=== PATIENT | male | born 1980 | race Caucasian/White ===

== ENCOUNTER 2017-04-29 14:48 | Emergency (ER) | payer OTHER ==
[2017-04-29 14:57] VITALS: BP 136/82; PULSE 79; RESP 18; TEMP 97.3
[2017-04-29] MEDS ORDERED: HYDROcodone/APAP 5-325MG 1 EACH TAB PO STA (15:24)
--- NOTE | 2017-04-29 15:42 | XR ---
Right toes HISTORY: Trauma and pain 3 views of the right toes are submitted. Digits are flexed. Lucency is present through the volar aspect of the middle phalanx of the fourth d igit of the right foot suspicious for intra-articular fracture at the proximal interphalangeal joint. No dislocation. IMPRESSION: Findings suggest fracture of the volar aspect at the proximal interphalangeal joint of th e fourth digit of the right foot within the middle phalanx as described.
--- NOTE | 2017-04-29 15:49 | ED ---
Wound/Laceration HPI - General Chief Complaint: Wound/Laceration Stated Complaint: right foot injury from lawnmower Time Seen by Provider: 04/29/17 14:59 Source: patient Mode of arrival: wheelchair Limitations: no limitations - History of Present Illness Initial Comments: 36 her old male patient presents to emergency department today for evaluation of a right foot injury. Patient states he was mowing the lawn about an hour ago with a push mower, he states he was backing up when he tripped over his child's sandbox, falling backwards, he states that the lawnmower came backward over his foot. He states he was wearing a tennis shoe and it tore up his tennis shoe and caused injury to his foot. Patient does have a laceration to his fourth toe, and is complaining of pain to the second through fifth toes. Patient states he is able to move them without difficulty. Denies any numbness or tingling. Denies any injury to the foot or ankle. He denies hitting his head or losing consciousness. Patient denies any headache, neck pain, back pain , chest pain, shortness of breath, dizziness, weakness, abdominal pain, nausea, vomiting, or difficulties with bowel movements or urination. - Related Data Previous Rx's Medication Instructions Recorded Cephalexin [Keflex] 500 mg PO QID #21 cap 04/29/17 Allergies Allergy/AdvReac Type Severity Reaction Status Date / Time No Known Allergies Allergy Verified 04/29/17 14:57 Review of Systems ROS Statement: Those systems with pertinent positive or pertinent negative responses have been documented in the HPI. ROS Other: All systems not noted in ROS Statement are negative. Past Medical History Past Medical History: No Reported History History of Any Multi-Drug Resistant Organisms: None Reported Past Surgical History: Adenoidectomy, Ear Surgery, Hernia Repair, Tonsillectomy Past Psychological History: No Psychological Hx Reported Smoking Status: Never smoker Past Alcohol Use History: Occasional Past Drug Use History: None Reported General Exam Limitations: no limitations General appearance: alert, in no apparent distress Head exam: Present: atraumatic, normocephalic, normal inspection Eye exam: Present: normal appearance, PERRL, EOMI. Absent: scleral icterus, conjunctival injection, periorbital swelling ENT exam: Present: normal exam, normal oropharynx, mucous membranes moist Neck exam: Present: normal inspection, full ROM, other (Nontender, no step-off, no deformity noted to firm midline palpation of the posterior cervical spine. Full range of motion without pain or limitation.). Absent: tenderness, meningismus, lymphadenopathy Respiratory exam: Present: normal lung sounds bilaterally. Absent: respiratory distress, wheezes, rales, rhonchi, stridor Cardiovascular Exam: Present: regular rate, normal rhythm, normal heart sounds. Absent: systolic murmur, diastolic murmur, rubs, gallop, clicks Extremities exam: Present: normal inspection, full ROM, normal capillary refill , other (Right second , third, fourth, and fifth toes are mildly edematous with some evidence of ecchymosis. Right fourth toe to the right lateral aspect shows a laceration, bleeding controlled. Skin otherwise is pink, warm, and dry. Cap refill less than 3 seconds.). Absent: tenderness, pedal edema, joint swelling, calf tenderness Back exam: Present: normal inspection, full ROM, other. Absent: tenderness, CVA tenderness (R), CVA tenderness (L), vertebral tenderness, rash noted Neurological exam: Present: alert, oriented X3, CN II-XII intact Psychiatric exam: Present: normal affect, normal mood Skin exam: Present: warm, dry, intact, normal color. Absent: rash Course Vital Signs 04/29/17 14:53 Temperature 97.3 F L Pulse Rate 79 Respiratory 18 Rate Blood Pressure 136/82 O2 Sat by Pulse 97 Oximetry Procedures - Laceration Laceration #1 Consent Obtained: verbal consent Time Out Performed: Yes Indication: laceration Site: other (fourth toe left foot) Size (cm): 3 Description: linear Depth: simple, single layer Anesthetic Used: lidocaine 1% Anesthesia Technique: local infiltration, nerve block Amount (mls): 6 Pre-repair: irrigated extensively Type of Sutures: nylon Size of Sutures: 5-0 Number of Sutures: 4 Technique: simple, interrupted Patient Tolerated Procedure: well, no complications Medical Decision Making - Medical Decision Making 36-year-old male patient presented for evaluation of right foot injury. X-ray of the right toes were obtained and did show an acute fracture through the proximal interphalangeal joint of the fourth toe on the right foot. Laceration was closed with 4 sutures. Patient was given an injection of Ancef here in the department. Given a prescription for Keflex. Instructed to follow-up with orthopedics for reevaluation in one to 2 days. Given copy of the x-ray to take with him to the appointment. Instructed to return immediately for any new, worsening, or concerning symptoms. Patient verbalizes understanding and agreed with this plan. - Radiology Data Radiology results: report reviewed, image reviewed 3 views of the right toes are submitted. Digits are flexed. Lucency is present to the volar aspect of the middle phalanx of the fourth digit of the right foot suspicious for intra-articular fracture at the proximal interphalangeal joint. No dislocation. Impression by Dr. Christopher states findings suggest fracture of the volar aspect of the proximal interphalangeal joint of the fourth digit of the right foot within the middle phalanx as described. Disposition Clinical Impression: Fracture of fourth toe, right, open Disposition: HOME SELF-CARE Condition: Good Instructions: Care For Your Stitches (ED), Laceration (ED), Toe Fracture (ED) Additional Instructions: Keep wound clean and dry. Do not submersed in water including baths, ponds, lakes, pools, or the beach. Gently scrub stitches twice daily with warm soapy water. Watch for signs of infection including redness, drainage of pus, swelling , fever, and chills. Complete antibiotic prescription in full. Follow up with orthopedics. Return immediately with any new, worsening, or concerning symptoms. Prescriptions: Cephalexin [Keflex] 500 mg PO QID #21 cap Referrals: None,Stated [Primary Care Provider] - 1-2 days Nicko Ragsdale DO [Doctor of Osteopathic Medicine] - 1-2 days Time of Disposition: 16:48
[2017-04-29] MEDS ORDERED: ceFAZolin 1,000 MG VIAL IM STA (16:22)
== END 2017-04-29 17:06 | disposition home or self-care (01) ==
LOC: EC 14:48
DX: S92.511B Displaced fracture of proximal phalanx of right lesser toe(s), initial encounter for open fracture (principal); W20.8XXA Other cause of strike by thrown, projected or falling object, initial encounter; Y93.89 Activity, other specified
CPT/HCPCS: 73660; 99283; 96372; 12002; J0690

== ENCOUNTER 2020-01-03 14:47 | Emergency (ER) | payer OTHER ==
[2020-01-03 14:59] VITALS: TEMP 98.4
[2020-01-03] MEDS ORDERED: IBUPROFEN 600 MG TAB PO STA (16:55)
--- NOTE | 2020-01-03 16:55 | ED ---
Male Urogenital HPI - General Chief complaint: Urogenital Stated complaint: swollen testicals Time Seen by Provider: 01/03/20 16:03 Source: patient Mode of arrival: ambulatory Limitations: no limitations - History of Present Illness Initial comments: Patient is a 39-year-old male presenting to the emergency Department with complaints of a swollen right testicle. Patient states he noticed a few days ago some pain and inflammation in the area. Patient states he feels a "bump on his cord." Patient states he's been squeezing this area. He also admits to dysuria, increase in frequency of urination. He does admit to being sexually active. He denies any fever, chills, abdominal pain. He does admit to mild nausea when the pain is worse. He states the pain is worse today that when he came into the ER. He has not taken any Tylenol or Motrin. He has no other complaints. Upon arrival to the ER, vital signs are stable. - Related Data Previous Rx's Medication Instructions Recorded Cephalexin [Keflex] 500 mg PO QID #21 cap 04/29/17 Doxycycline Monohydrate [Monodox] 100 mg PO BID 10 Days #20 cap 01/03/20 Allergies Allergy/AdvReac Type Severity Reaction Status Date / Time No Known Allergies Allergy Verified 01/03/20 14:59 Review of Systems ROS Statement: Those systems with pertinent positive or pertinent negative responses have been documented in the HPI. ROS Other: All systems not noted in ROS Statement are negative. Past Medical History Past Medical History: No Reported History History of Any Multi-Drug Resistant Organisms: None Reported Past Surgical History: Adenoidectomy, Ear Surgery, Hernia Repair, Tonsillectomy Past Psychological History: No Psychological Hx Reported Smoking Status: Current every day smoker Past Alcohol Use History: Occasional Past Drug Use History: Marijuana, Prescription Drug Abuse General Exam - General Exam Comments Initial Comments: GENERAL: Well-appearing, well-nourished and in no acute distress. HEAD: Atraumatic, normocephalic. EYES: Pupils equal round and reactive to light, extraocular movements intact, sclera anicteric, conjunctiva are normal. ENT: Moist mucous membranes. NECK: Normal range of motion, supple without lymphadenopathy or JVD. LUNGS: Breath sounds clear to auscultation bilaterally and equal. No wheezes rales or rhonchi. HEART: Regular rate and rhythm without murmurs, rubs or gallops. ABDOMEN: Soft, nontender, normoactive bowel sounds. No guarding, no rebound. No masses appreciated. EXTREMITIES: Normal range of motion, no pitting or edema. No clubbing or cyanosis. SKIN: Warm, Dry, normal turgor, no rashes or lesions noted. Limitations: no limitations exam: Present: testicular tenderness, scrotal swelling (Some mild overlying erythema), circumcision. Absent: urethral discharge Course Vital Signs 01/03/20 01/03/20 01/03/20 14:55 14:59 15:59 Temperature 98.4 F Pulse Rate 103 H Respiratory 18 18 18 Rate Blood Pressure 137/93 O2 Sat by Pulse 100 Oximetry 01/03/20 01/03/20 01/03/20 16:00 17:00 18:00 Temperature Pulse Rate 95 91 Respiratory 18 20 20 Rate Blood Pressure 135/86 132/88 O2 Sat by Pulse 99 99 Oximetry 01/03/20 18:51 Temperature Pulse Rate 91 Respiratory 20 Rate Blood Pressure 132/88 O2 Sat by Pulse 99 Oximetry Medical Decision Making - Medical Decision Making Patient is a 39-year-old male presenting of right-sided testicle pain and swelling 3 days. He also admits to dysuria, discharge. Ultrasound of the scrotum reveals a right-sided variceal with a distended vein suggesting and thrombosed varicocele. There is also right-sided epididymitis possible. No sign of testicular torsion. Given the right-sided variceal, a computed tomography scan was ordered to evaluate for IVC pathology. No other acute findings was seen. Patient was given 2050 mg of Rocephin and will be started on doxycycline for epididymitis. Patient will be given urology referral as well. He is stable for discharge. He is in agreement with this plan of care. Return parameters were discussed with the patient and he verbalized understanding. Case discussed with Dr. Treviño. - Lab Data Lab Results 01/03/20 Range/Units 16:10 Urine Color Yellow Urine Appearance Clear (Clear) Urine pH 6.0 (5.0-8.0) Ur Specific [place] 1.028 (1.001-1.035) Urine Protein Trace H (Negative) Urine Glucose (UA) Negative (Negative) Urine Ketones Negative (Negative) Urine Blood Negative (Negative) Urine Nitrite Negative (Negative) Urine Bilirubin Negative (Negative) Urine Urobilinogen <2.0 (<2.0) mg/dL Ur Leukocyte Esterase Large H (Negative) Urine WBC 70 H (0-5) /hpf Ur Squamous Epith Cells <1 (0-4) /hpf Urine Bacteria Rare H (None) /hpf Hyaline Casts 1 (0-2) /lpf Urine Mucus Many H (None) /hpf Disposition Clinical Impression: Epididymitis, Right varicocele Disposition: HOME SELF-CARE Condition: Stable Instructions (If sedation given, give patient instructions): Epididymitis (ED), Varicocele (ED) Additional Instructions: Please return to the Emergency Department if symptoms worsen or any other concerns. Take antibiotics as prescribed. Follow up with urology. Prescriptions: Doxycycline Monohydrate [Monodox] 100 mg PO BID 10 Days #20 cap Is patient prescribed a controlled substance at d/c from ED?: No Referrals: None,Stated [Primary Care Provider] - 1-2 days Miguel Steinberg MD [STAFF PHYSICIAN] - 1-2 days
[2020-01-03 16:57] LABS: Appearance,Urine Clear (Clear); Bacteria,Urine Rare /hpf; Bilirubin,Urine Negative (Negative); Blood,Urine Negative (Negative); Color,Urine Yellow; Glucose,Urine (UA) Negative (Negative); Hyaline Casts,Urine 1 /lpf (0-2); Ketones,Urine Negative (Negative); Leukocyte Esterase,Urine Large (Negative); Mucus,Urine Many /hpf; Nitrite,Urine Negative (Negative); Protein,Urine Trace (Negative); Specific Gravity,Urine 1.028 (1.001-1.035); Squamous Epithelial Cell,Urine <1 /hpf (0-4); Urobilinogen,Urine <2.0 mg/dL (<2.0); WBC,Urine 70 /hpf (0-5)
--- NOTE | 2020-01-03 17:40 | US ---
EXAMINATION TYPE: US scrotum with doppler. DATE OF EXAM: 01/03/2020 COMPARISON: NONE CLINICAL HISTORY: 39-year-old male with pain, swelling. Right side pain 3 days TECHNIQUE: Grayscale and color Doppler Duplex imaging performed of the scrotum. FINDINGS: EXAM MEASUREMENTS: TESTICLES: Right Testicle: 3.5 x 2.2 x 2.9 cm Left Testicle: 3.0 x 1.8 x 2.5 cm Homogeneous appearance to the testicles. Satisfactory arterial and venous flow. EPIDIDYMIS HEAD: Right Epididymis: 1.2 cm Left Epididymis: 1.1 cm Mild scrotal skin thickening. Presence of hydroceles: Small and the right. Presence of varicoceles: Yes, on the right [employer] notes: Lateral to the right testicle, there appears to be a thrombosed varicocele vs othe r IMPRESSION: 1. Right-sided varicocele with a persistently distended vein with internal echoes suggesting a thromb osed varicocele. 2. There is prominent surrounding soft tissue hyperemia; a right-sided epididymitis is difficult to e xclude. 3. Small right-sided hydrocele likely reactive. 4. No sonographic evidence for testicular torsion.
--- NOTE | 2020-01-03 18:34 | CT ---
EXAMINATION TYPE: CT abdomen pelvis wo con DATE OF EXAM: 01/03/2020 COMPARISON: Correlation scrotal ultrasound same day HISTORY: 39-year-old male testicular pain and swelling CT DLP: 494.6 mGycm. Automated exposure control for dose reduction was used. TECHNIQUE: Contiguous axial scanning of the abdomen and pelvis without IV contrast. Coronal and sagit ousmane reconstructions performed. FINDINGS: Heart is normal size without pericardial effusion. Lung bases clear without pleural effusion. Noncontrast appearance of the liver, gallbladder, adrenal glands, kidneys, spleen, and pancreas show no gross abnormality. No dilated small bowel, free fluid, or free air. Suspect visualization short segment of normal air-filled appendix. Mild stool burden. No pericolonic inflammatory change. Limited assessment for lymphadenopathy due to paucity of intra-abdominal fat and lack of contrast. No obvious retroperitoneal lymphadenopathy. Mild circumferential bladder wall thickening. Pelvic phleboliths. No abnormal fluid collection in the pelvis. This seems to be a small right-sided hydrocele. Assessment limited without contrast. Bones: No osseous destructive process. IMPRESSION: 1. Assessment limited without contrast. No obvious retroperitoneal lymphadenopathy to account for an isolated right-sided varicocele on ultrasound. 2. Small right-sided hydrocele is suggested. 3. Mild circumferential bladder wall thickening. Correlate to exclude cystitis.
[2020-01-03] MEDS ORDERED: cefTRIAXone 250 MG VIAL IM STA (18:39)
[2020-01-03 18:52] VITALS: BP 132/88; PULSE 91; RESP 20
[2020-01-07 14:56] LABS: C. trachomatis,PCR Negative (Neg,Equiv); Chlamydia trachomatis Source Urine; N. gonorrhoeae,PCR Positive (Neg,Equiv); Neisseria Source Urine
== END 2020-01-03 18:53 | disposition home or self-care (01) ==
LOC: EC 14:47
DX: I86.1 Scrotal varices (principal); N45.1 Epididymitis; F17.200 Nicotine dependence, unspecified, uncomplicated; F12.10 Cannabis abuse, uncomplicated
CPT/HCPCS: 81001; 87491; 87591; 87086; 93975; 76870; 74176; 99284; 96372; J0696

== ENCOUNTER 2021-03-07 01:49 | Emergency (ER) | payer OTHER ==
[2021-03-07 01:58] VITALS: RESP 18
[2021-03-07] MEDS ORDERED: LIDOCAINE 1%-EPI 1:100,000 20 ML VIAL SQ STA (02:07)
--- NOTE | 2021-03-07 02:42 | ED ---
Skin/Abscess/FB HPI - General Chief complaint: Skin/Abscess/Foreign Body Stated complaint: LT arm abscess Time Seen by Provider: 03/07/21 02:00 Source: patient Mode of arrival: ambulatory Limitations: no limitations - History of Present Illness Initial comments: 40-year-old male presents to emergency department with chief complaint of an abscess on his left forearm. He states he was out at a alliance party 3 days ago and he injected some "drugs" in the left forearm. States he believes it was some type of an amphetamine. Patient reports he also used methamphetamines earlier today then smoked marijuana to "calm himself down". Patient reports his abscess and infection is growing in the left arm. He reports it is tender to the touch with some yellow discharge. States today he noticed some streaking proximally towards the elbow and shoulder. He denies any fevers or chills. Denies nausea or vomiting - Related Data Previous Rx's Medication Instructions Recorded Cephalexin [Keflex] 500 mg PO QID #21 cap 04/29/17 Doxycycline Monohydrate [Monodox] 100 mg PO BID 10 Days #20 cap 01/03/20 Cephalexin [Keflex] 500 mg PO Q6HR #40 cap 03/07/21 Sulfamethox-Tmp 800-160Mg [Bactrim 1 each PO Q12HR #20 tab 03/07/21 Ds] Allergies Allergy/AdvReac Type Severity Reaction Status Date / Time tuna oil Allergy Unknown Verified 03/07/21 01:51 Review of Systems ROS Statement: Those systems with pertinent positive or pertinent negative responses have been documented in the HPI. ROS Other: All systems not noted in ROS Statement are negative. Past Medical History Past Medical History: No Reported History History of Any Multi-Drug Resistant Organisms: None Reported Past Surgical History: Adenoidectomy, Ear Surgery, Hernia Repair, Tonsillectomy Past Psychological History: No Psychological Hx Reported Smoking Status: Current every day smoker Past Alcohol Use History: Occasional Past Drug Use History: Marijuana, Prescription Drug Abuse General Exam Limitations: no limitations General appearance: alert, in no apparent distress Head exam: Present: atraumatic, normocephalic, normal inspection Eye exam: Present: normal appearance, PERRL, EOMI Pupils: Present: normal accommodation ENT exam: Present: normal exam, normal oropharynx, mucous membranes moist Neck exam: Present: normal inspection, full ROM. Absent: tenderness, lymphadenopathy Respiratory exam: Present: normal lung sounds bilaterally. Absent: respiratory distress, wheezes, rales Cardiovascular Exam: Present: regular rate, bradycardia, normal heart sounds Extremities exam: Present: full ROM, tenderness (Tenderness at the abscess), normal capillary refill, calf tenderness. Absent: normal inspection (Abscess on the ventral aspect of the mid left forearm with surrounding cellulitis. Lymphangitis also noted more proximally), pedal edema, joint swelling Back exam: Present: normal inspection, full ROM. Absent: tenderness, CVA tenderness (R), CVA tenderness (L) Neurological exam: Present: alert, oriented X3, CN II-XII intact, normal gait Psychiatric exam: Present: normal affect, normal mood Skin exam: Present: warm, dry, intact, normal color Course Vital Signs 03/07/21 01:51 Temperature 98.4 F Pulse Rate 136 H Respiratory 18 Rate Blood Pressure 131/59 O2 Sat by Pulse 100 Oximetry Procedures - Incision & Drainage Consent Obtained: verbal consent Indication: Abscess Site: upper extremity (Left forearm) Size (cm): 2 Anesthetic Used: lidocaine 1%, with epi Amount (mLs): 2 I&D Cleaning Method: Alcohol Wipe Sterile Field Used?: No Scalpel Used: #11 Needle Aspiration Performed?: No Irrigation Performed?: No I&D Drainage Obtained: Blood Culture Obtained?: No Complications: pain, bleeding Patient Tolerated Procedure: well, no complications Medical Decision Making - Medical Decision Making 4-year-old male presents to emergency follow with a chief complaint of an abscess. On physical examination, patient is tachycardic with a heart rate of 130. EKG showing sinus tachycardia. Likely secondary to using amphetamines prior to ED arrival. Incision and drainage performed at the abscess site. Patient tolerated procedure well. It was able to remove yellow purulent discharge. Patient will be started on Keflex and Bactrim. Advised him to apply warm compresses. Advised him to return to emergency department if symptoms worsen. Strict return parameters were thoroughly discussed the patient was understanding and agreeable. Case discussed with Disposition Clinical Impression: Injection site abscess, Lymphangitis Disposition: HOME SELF-CARE Condition: Stable Instructions (If sedation given, give patient instructions): Abscess Incision and Drainage (ED), Abscess (ED) Additional Instructions: Take the medication as directed. Apply warm converses. Return to emergency department if symptoms worsen. Prescriptions: Sulfamethox-Tmp 800-160Mg [Bactrim Ds] 1 each PO Q12HR #20 tab Cephalexin [Keflex] 500 mg PO Q6HR #40 cap Is patient prescribed a controlled substance at d/c from ED?: No Referrals: Edvin Wiggins MD [Primary Care Provider] - 1-2 days Time of Disposition: 02:54
[2021-03-07] MEDS ORDERED: SULFAMETHOX-TMP 800-160MG 1 EACH TAB PO STA (02:45)
[2021-03-07] MEDS ORDERED: CEPHALEXIN 500 MG CAP PO STA (02:45)
[2021-03-07 03:05] VITALS: BP 117/70; PULSE 115; TEMP 98.7
== END 2021-03-07 03:12 | disposition home or self-care (01) ==
LOC: EC 01:49
DX: L02.414 Cutaneous abscess of left upper limb (principal); I89.1 Lymphangitis; F17.200 Nicotine dependence, unspecified, uncomplicated; F12.90 Cannabis use, unspecified, uncomplicated
CPT/HCPCS: 10060; 93005; 99283